=== PATIENT | male | born 1995 | race Caucasian/White ===

== ENCOUNTER 2019-01-10 09:24 | Inpatient (IN) ==
[2019-01-10] MEDS ORDERED: TUBERSOL ID ONE (12:18)
[2019-01-10] MEDS ORDERED: ZOFRAN IM PRN (12:18)
[2019-01-10] MEDS ORDERED: SEROQUEL PO PRN (12:18)
[2019-01-10] MEDS ORDERED: DULCOLAX PR PRN (12:18)
[2019-01-10] MEDS ORDERED: MOTRIN PO PRN (12:18)
[2019-01-10] MEDS ORDERED: IMODIUM PO PRN ×2 (12:18)
[2019-01-10] MEDS ORDERED: D5W 1,000 ML IV PRN (12:18)
[2019-01-10] MEDS ORDERED: MAALOX PLUS LIQUID PO PRN (12:18)
[2019-01-10] MEDS ORDERED: PHENOBARBITAL IV PRN (12:18)
[2019-01-10] MEDS ORDERED: NICOTINE GUM BUCCAL PRN (12:18)
[2019-01-10] MEDS ORDERED: ZOFRAN ODT PO PRN (12:18)
[2019-01-10] MEDS ORDERED: SENOKOT PO PRN (12:18)
[2019-01-10] MEDS ORDERED: TYLENOL PO PRN (12:18)
[2019-01-10] MEDS ORDERED: DESYREL PO PRN (12:18)
[2019-01-10] MEDS ORDERED: ZOFRAN IV PRN (12:18)
[2019-01-10] MEDS ORDERED: ATARAX PO PRN (12:42)
[2019-01-10] MEDS ORDERED: BENTYL PO PRN (12:42)
[2019-01-10] MEDS ORDERED: SINEMET 25/100 PO PRN (12:42)
[2019-01-10] MEDS ORDERED: ROBAXIN PO PRN (12:42)
[2019-01-10] MEDS ORDERED: LIBRIUM PO PRN (12:42)
[2019-01-10] MEDS ORDERED: LIBRIUM PO SCH (12:45)
[2019-01-10 12:49] LABS: HEMATOCRIT 43.7 % (42.0-52.0); HEMOGLOBIN 14.8 g/dL (14.0-18.0); MCH 29.5 PG (27-31); MCHC 33.9 g/dL (33-37); MCV 87.1 FL (81-99); MPV 10.4 FL (7.4-10.4); RBC 5.02 XMIL (4.7-6.1); RDW 13.1 % (11.5-14.5); WBC 8.66 X1000 (4.8-10.8)
[2019-01-10 13:05] LABS: AMYLASE 28 U/L (20-200); LIPASE 27 U/L (13-60)
[2019-01-10 13:09] LABS: AGAP 9; ALKALINE PHOSPHATASE 71 U/L (32-122); BUN 10 mg/dL (8-22); CALCIUM 8.8 mg/dL (8.8-10.2); CHLORIDE 104 mmol/L (98-107); COSMO 276; CREATININE 0.8 mg/dL (0.7-1.2); ESTIMATED GFR > 60; GLUCOSE 86 mg/dL (70-104); GOT 22 U/L (10-34); GPT 56 U/L (10-44); POTASSIUM 4.6 mmol/L (3.5-5.1); SODIUM 139 mmol/L (136-145); TCO2 26 mmol/L (25-35); TOTAL PROTEIN 6.7 g/dL (6.3-8.3)
[2019-01-10 13:17] LABS: INR 0.86; PROTIME 12.2 Seconds (11.0-16.0)
[2019-01-10] MEDS: LIBRIUM PO SCH ×2 (14:51→20:55)
[2019-01-10] MEDS: NICODERM PATCH TD PRN (15:05)
[2019-01-10 15:24] LABS: UR AMPHETAMINES QUAL PRESUMPTIVE POSITIVE (NONE DETECT); UR BARBITUATES QUAL NONE DETECTED (NONE DETECT)
[2019-01-10 15:25] LABS: UR BENZODIAZEPIN QUAL PRESUMPTIVE POSITIVE (NONE DETECT); UR CANNABINOIDS QUAL NONE DETECTED (NONE DETECT); UR COCAINE QUAL PRESUMPTIVE POSITIVE (NONE DETECT); UR METHADONE QUAL NONE DETECTED (NONE DETECT); UR METHAMPHETAMINE QUAL NONE DETECTED (NONE DETECT); UR OPIATES QUAL NONE DETECTED (NONE DETECT); UR OXYCODONE QUAL NONE DETECTED (NONE DETECT); UR PCP QUAL NONE DETECTED (NONE DETECT); UR PROPOXYPHENE QUAL NONE DETECTED (NONE DETECT); UR TCA QUAL NONE DETECTED (NONE DETECT)
[2019-01-10 22:13] LABS: URINE SOURCE CLEAN CATCH
[2019-01-10 22:22] LABS: BILIRUBIN URINE NEGATIVE (NEGATIVE); BLOOD URINE NEGATIVE (NEGATIVE); CLARITY CLEAR (CLEAR); COLOR YELLOW; GLUCOSE URINE NEGATIVE (NEGATIVE); KETONE URINE NEGATIVE (NEGATIVE); LEUKOCYTES URINE NEGATIVE (NEGATIVE); NITRITE URINE NEGATIVE (NEGATIVE); PH URINE 6.5; PROTEIN URINE NEGATIVE (NEGATIVE); SP GRAVITY URINE 1.015; UROBILINOGEN URINE NORMAL
[2019-01-11] MEDS: LIBRIUM PO SCH ×4 (01:54→22:14)
[2019-01-11] MEDS: PROTONIX PO SCH (06:17)
[2019-01-11] MEDS: THERA M PLUS PO SCH (10:05)
[2019-01-11] MEDS: FOLIC ACID PO SCH (10:05)
[2019-01-11] MEDS: VITAMIN B-1 PO SCH (10:05)
[2019-01-11] MEDS: NICODERM PATCH TD PRN (10:12)
--- NOTE | 2019-01-11 22:20 | PROGRESS NOTE ---
DATE: 01/11/2019 SUBJECTIVE: Patient has no new complaints. States overall he is feeling a lot better. Still having some muscle aches. Denies any fevers or chills. PHYSICAL EXAMINATION: Vital Signs: Reviewed. He is afebrile. Temperature 97, pulse 78, respiratory rate 18, BP 148/61. General: Patient is pleasant. He is in no distress. HEENT: Normocephalic. Neck: Supple. Cardiovascular: Regular rate. No murmurs. Chest: Clear. Abdomen: Soft, nondistended. Extremities: Moves all extremities. ASSESSMENT: 1. Nausea and vomiting. 2. Abdominal pain. 3. Myalgias. 4. Paresthesias. 5. Polysubstance use and abuse. PLAN: We will continue counseling. Continue to wean. Continue symptomatic care. Further orders as needed. cc: Ike Valdivia MD
[2019-01-12] MEDS: LIBRIUM PO SCH ×4 (05:53→20:01)
[2019-01-12] MEDS: PROTONIX PO SCH ×2 (05:54→06:03)
[2019-01-12] MEDS: THERA M PLUS PO SCH ×2 (07:49→08:10)
[2019-01-12] MEDS: FOLIC ACID PO SCH ×2 (07:49→08:10)
[2019-01-12] MEDS: VITAMIN B-1 PO SCH ×2 (07:49→08:11)
[2019-01-12] MEDS: NICODERM PATCH TD PRN (08:09)
--- NOTE | 2019-01-12 22:04 | PROGRESS NOTE ---
DATE: 01/12/2019 SUBJECTIVE: Patient notes he is starting to feel a lot better. Denies any nausea or vomiting currently. OBJECTIVE: Vital Signs: Reviewed. Temperature 97 degrees, pulse 78, respiratory rate 18, BP 148/68. General: Patient is awake, currently is in no distress. HEENT: Normocephalic. Neck: Supple. Cardiovascular: Regular rate. Chest: Clear. Abdomen: Soft. Skin: His skin color appears back to normal. He appears to be feeling better. ASSESSMENT: 1. Nausea and vomiting. 2. Abdominal pain. 3. Myalgias. 4. Paresthesias. 5. Paroxysmal sweating. 6. Asthma. 7. Polysubstance use and abuse. PLAN: We will continue patient in the hospital, continue to wean Librium, continue counseling. Further orders as needed. cc: Ike Valdivia MD
[2019-01-13] MEDS: LIBRIUM PO SCH ×2 (03:59→06:03)
[2019-01-13] MEDS: PROTONIX PO SCH (06:03)
[2019-01-13] MEDS ORDERED: LIBRIUM PO SCH (09:00)
[2019-01-13] MEDS: THERA M PLUS PO SCH (09:41)
[2019-01-13] MEDS: NICODERM PATCH TD PRN (09:41)
[2019-01-13] MEDS: VITAMIN B-1 PO SCH (09:41)
[2019-01-13] MEDS: FOLIC ACID PO SCH (09:41)
[2019-01-13 11:37] VITALS: BP 144/76
== END 2019-01-13 15:00 | disposition home or self-care (01) | DRG 897 ==
LOC: P.DIRADM 09:27 → P.MEDSURG 09:51
PROVIDERS: ADMIT Family Medicine; ATTEND Family Medicine
CPT/HCPCS: 80053; 80104; 80301; 80305; 80307; 80320; 82055; 82150; 83690; 85027; 85610; A9270; G0431; G0434; G0477; G0480; G6040; S4995